=== PATIENT | male | born 1945 | race Caucasian/White ===

== ENCOUNTER 2020-01-23 09:27 | Inpatient (IN) ==
[2020-01-23] MEDS ORDERED: ASPIRIN 325 MG TABLET PO STA (09:52)
[2020-01-23] MEDS ORDERED: NITROGLYCERIN SL 0.4 MG TABLET SL PRN ×2 (09:52→11:26)
[2020-01-23 10:01] LABS: Basophils % 0.1 % (0.0-0.8); Eosinophils # 0.1 10*3/uL (0.0-0.87); Eosinophils % 0.3 % (0.00-10.9); Hematocrit 36.7 VOL% (42.0-52.0); Hemoglobin 12.3 GM/DL (14.0-18.0); Immature Granulocytes % 0.7 %; Immature Granulocytes Absolute 0.12 #; Lymphocytes # 0.7 10*3/uL (1.4-4.0); Lymphocytes % 3.9 % (21.2-54.2); Mean Corpuscular HGB Conc 33.5 GM/DL (32-36); Mean Corpuscular Volume 88.2 FL (87-102); Mean Platelet Volume 9.1 FL (9.6-12.0); Monocytes % 7.3 % (1.7-12.7); Neutrophils % 87.7 % (38.7-73.9); Platelet Count 511 T/CUMM (130-400); Red Blood Count 4.16 MC/CUMM (3.8-5.5); Red Cell Distribution Width 12.3 % (9.3-17.3); White Blood Count 18.3 T/CUMM (4-12)
[2020-01-23 10:22] LABS: Band Neutrophils 7 % (0-10); Eosinophils 1 % (0-10); Lymphocytes 6 % (20-55); Platelet Estimate Increased; Segmented Neutrophils 79 % (50-85); Total Cells Counted 100
[2020-01-23 10:23] LABS: Anisocytosis Slight
[2020-01-23 10:35] LABS: Albumin 2.8 G/DL (3.4-5.0); Bilirubin,Total 1.1 MG/DL (0.2-1.0); Calcium 10.1 MG/DL (8.5-10.1); Osmolality,Calculated 270.5 MOS/KG (273-304); Total Protein 8.9 G/DL (6.4-8.3)
[2020-01-23] MEDS ORDERED: DEXTROSE 50% 25 GM/50 ML VIAL IV PRN (11:23)
[2020-01-23] MEDS ORDERED: MAGNESIUM SULF RIDER 4 GM in PREMIX 1 EACH IV PRN (11:23)
[2020-01-23] MEDS ORDERED: MAGNESIUM SULF RIDER 2 GM in PREMIX 1 EACH IV PRN (11:23)
[2020-01-23] MEDS ORDERED: ONDANSETRON 4 MG/2 ML VIAL IV PRN (11:23)
[2020-01-23] MEDS ORDERED: ACETAMINOPHEN 325 MG TABLET PO PRN (11:23)
[2020-01-23] MEDS ORDERED: GLUCAGON 1 MG VIAL IM PRN (11:23)
[2020-01-23] MEDS: INSULIN LISPRO 100 UNIT/ML SUBCUT SCH ×3 (13:13→20:45)
[2020-01-23] MEDS ORDERED: ENOXAPARIN 40 MG/0.4 ML SYRINGE SUBCUT SCH (14:00)
[2020-01-23] MEDS: SODIUM CHLORIDE 0.45% 1,000 ML IV SCH (14:05)
[2020-01-23] MEDS: cloNIDine 0.1 MG TABLET PO SCH ×2 (14:13→20:41)
[2020-01-23] MEDS: MAGNESIUM CHLORIDE 64 MG TABLET PO SCH (20:41)
[2020-01-23] MEDS: METOPROLOL TARTRATE 50 MG TABLET PO SCH (20:41)
[2020-01-23] MEDS: ALPRAZolam 0.5 MG TABLET PO PRN (20:41)
[2020-01-23] MEDS: SIMVASTATIN 10 MG TABLET PO SCH (20:42)
[2020-01-23] MEDS ORDERED: DILTIAZEM 25 MG/5 ML VIAL IV ONE (21:14)
[2020-01-23] MEDS: dilTIAZem INJ 125 MG in SODIUM CHLORIDE 0.9% 125 MG/100 ML BAG IV SCH (22:21)
[2020-01-24 05:44] LABS: Basophils % 0.1 % (0.0-0.8); Eosinophils # 0.1 10*3/uL (0.0-0.87); Eosinophils % 0.4 % (0.00-10.9); Hematocrit 32.6 VOL% (42.0-52.0); Immature Granulocytes % 0.5 %; Immature Granulocytes Absolute 0.07 #; Lymphocytes # 1.3 10*3/uL (1.4-4.0); Lymphocytes % 8.4 % (21.2-54.2); Mean Corpuscular HGB Conc 33.7 GM/DL (32-36); Mean Platelet Volume 8.8 FL (9.6-12.0); Monocytes % 9.7 % (1.7-12.7); Neutrophils % 80.9 % (38.7-73.9); Platelet Count 457 T/CUMM (130-400); Red Blood Count 3.79 MC/CUMM (3.8-5.5); Red Cell Distribution Width 12.5 % (9.3-17.3); White Blood Count 14.9 T/CUMM (4-12)
[2020-01-24 06:20] LABS: Calcium 9.4 MG/DL (8.5-10.1); Osmolality,Calculated 270.4 MOS/KG (273-304)
[2020-01-24 06:53] LABS: Risk Ratio 2.78; VLDL CHOLESTEROL 10.6 MG/DL
[2020-01-24] MEDS: POTASSIUM CHLORIDE 20 MEQ TABLET PO PRN ×3 (07:32→12:22)
[2020-01-24] MEDS ORDERED: MAGNESIUM SULF RIDER 2 GM in PREMIX 1 EACH IV ONE (08:14)
[2020-01-24] MEDS ORDERED: AMIODARONE INJ 150 MG in DEXTROSE 5% 100 ML IV ONE (08:20)
[2020-01-24] MEDS ORDERED: KETOROLAC 30 MG/1 ML VIAL IV PRN (08:27)
[2020-01-24] MEDS ORDERED: AMIODARONE INJ 450 MG in DEXTROSE 5% 241 ML IV SCH (08:30)
[2020-01-24] MEDS: INSULIN LISPRO 100 UNIT/ML SUBCUT SCH ×4 (08:54→22:02)
[2020-01-24] MEDS ORDERED: CLOPIDOGREL 75 MG TABLET PO SCH (09:00)
[2020-01-24] MEDS ORDERED: hydroCHLOROthiazide 12.5 MG CAPSULE PO SCH (09:00)
[2020-01-24] MEDS ORDERED: AMIODARONE 200 MG TABLET PO SCH (09:00)
[2020-01-24] MEDS: cloNIDine 0.1 MG TABLET PO SCH ×3 (09:35→22:02)
[2020-01-24] MEDS: ENOXAPARIN 100 MG/ML SYRINGE SUBCUT SCH ×2 (09:35→22:01)
[2020-01-24] MEDS: CHOLECALCIFEROL 5,000 UNIT TABLET PO SCH (09:35)
[2020-01-24] MEDS: MAGNESIUM CHLORIDE 64 MG TABLET PO SCH ×2 (09:35→22:02)
[2020-01-24 09:36] LABS: Thyroid Stimulating Hormone 0.782 uIU/ml (0.358-3.74)
[2020-01-24] MEDS: METOPROLOL TARTRATE 50 MG TABLET PO SCH ×2 (09:36→22:02)
[2020-01-24] MEDS: PANTOPRAZOLE 40 MG TABLET PO SCH (09:36)
[2020-01-24] MEDS: LOSARTAN 50 MG TABLET PO SCH (09:36)
[2020-01-24 12:30] LABS: Total Protein 7.8 G/DL (6.4-8.3)
[2020-01-24 13:18] LABS: Immunoglobulin A (Chem) 389 MG/DL (70-400); Immunoglobulin G (Chem) 1080 MG/DL (700-1600); Immunoglobulin M (Chem) 35 MG/DL (40-230); Total Protein (Chem) 7.8 G/DL (6.4-8.3)
[2020-01-24] MEDS ORDERED: POTASSIUM CHLORIDE RIDER 10 MEQ in PREMIX 1 EACH IV PRN (15:07)
[2020-01-24 16:21] LABS: Bacteria,Urine Occasional /HPF (Few); Bilirubin,Urine Negative (Negative); Blood, Urine Small mg/dL (Negative); Glucose,Urine (UA) Negative (Negative); Ketones,Urine Negative (Negative); Mucus,Urine Occasional /LPF (Occasional); Nitrite,Urine Negative (Negative); Protein,Urine Negative; RBC,Urine 3 /HPF (0-4); Squamous Epithelial Cell,Urine Occasional /HPF (0-10); Urine Appearance Slightly Hazy (Clear); Urine Color Yellow (Yellow); Urine Specific Gravity 1.023 (1.001-1.035); WBC,Urine 3 /HPF (0-6)
[2020-01-24] MEDS: SODIUM CHLORIDE 0.45% 1,000 ML IV SCH (16:24)
[2020-01-24] MEDS: AMIODARONE INJ 450 MG in DEXTROSE 5% 241 ML IV SCH ×2 (17:24→22:42)
[2020-01-24 18:25] LABS: Albumin 2.5 G/DL (3.4-5.0); Bilirubin,Direct 0.28 MG/DL (0.0-0.20); Bilirubin,Indirect 0.3 MG/DL (0.0-1.0); Bilirubin,Total 0.6 MG/DL (0.2-1.0); Total Protein 7.9 G/DL (6.4-8.3)
[2020-01-24 19:12] LABS: Cyclic Citrull Peptide Interp Positive
[2020-01-24] MEDS: ALPRAZolam 0.5 MG TABLET PO PRN (22:02)
[2020-01-24] MEDS: SIMVASTATIN 10 MG TABLET PO SCH (22:04)
[2020-01-24] MEDS: dilTIAZem INJ 125 MG in SODIUM CHLORIDE 0.9% 125 MG/100 ML BAG IV SCH (22:38)
[2020-01-25 05:58] LABS: Basophils % 0.2 % (0.0-0.8); Eosinophils # 0.1 10*3/uL (0.0-0.87); Eosinophils % 1.1 % (0.00-10.9); Hemoglobin 11.1 GM/DL (14.0-18.0); Immature Granulocytes % 0.5 %; Immature Granulocytes Absolute 0.06 #; Lymphocytes # 1.4 10*3/uL (1.4-4.0); Lymphocytes % 12.2 % (21.2-54.2); Mean Corpuscular HGB Conc 32.6 GM/DL (32-36); Mean Corpuscular Volume 87.4 FL (87-102); Mean Platelet Volume 9.1 FL (9.6-12.0); Monocytes % 9.2 % (1.7-12.7); Neutrophils % 76.8 % (38.7-73.9); Platelet Count 463 T/CUMM (130-400); Red Blood Count 3.89 MC/CUMM (3.8-5.5); Red Cell Distribution Width 12.4 % (9.3-17.3); White Blood Count 11.1 T/CUMM (4-12)
[2020-01-25 06:19] LABS: Calcium 9.4 MG/DL (8.5-10.1); Osmolality,Calculated 269.4 MOS/KG (273-304)
[2020-01-25] MEDS: INSULIN LISPRO 100 UNIT/ML SUBCUT SCH ×4 (08:14→21:56)
[2020-01-25] MEDS: CYANOCOBALAMIN 500 MCG TABLET PO SCH (08:15)
[2020-01-25] MEDS: FERROUS SULFATE 325 MG TABLET PO SCH (08:15)
[2020-01-25] MEDS: CHOLECALCIFEROL 5,000 UNIT TABLET PO SCH (08:15)
[2020-01-25] MEDS: MAGNESIUM CHLORIDE 64 MG TABLET PO SCH ×2 (08:15→21:55)
[2020-01-25] MEDS ORDERED: DIAZEPAM 5 MG TABLET PO ONE (09:00)
[2020-01-25] MEDS ORDERED: diphenhydrAMINE CAP 25 MG CAPSULE PO ONE (09:00)
[2020-01-25] MEDS: ASPIRIN EC 81 MG TABLET PO SCH (09:08)
[2020-01-25] MEDS: METOPROLOL TARTRATE 50 MG TABLET PO SCH ×2 (09:09→21:55)
[2020-01-25] MEDS: LOSARTAN 50 MG TABLET PO SCH (09:09)
[2020-01-25] MEDS: PANTOPRAZOLE 40 MG TABLET PO SCH (09:09)
[2020-01-25] MEDS: cloNIDine 0.1 MG TABLET PO SCH ×3 (09:09→21:55)
[2020-01-25] MEDS: AMIODARONE 200 MG TABLET PO SCH ×2 (09:09→21:56)
[2020-01-25] MEDS ORDERED: fentaNYL 100 MCG/2 ML VIAL ONE (09:25)
[2020-01-25] MEDS ORDERED: MIDAZOLAM 2 MG/2 ML VIAL ONE (09:25)
[2020-01-25] MEDS ORDERED: LIDOCAINE 1% 20 ML VIAL ONE (09:27)
[2020-01-25] MEDS ORDERED: HEPARIN 5,000 UNIT/1 ML VIAL ONE (09:45)
[2020-01-25 10:17] LABS: Albumin (SPE) Rel % 45.4 %; Alpha 2 (SPE) Rel % 19.5 %; Beta (SPE) Rel % 13.8 %; Gamma (SPE) Rel % 15.3 %
[2020-01-25 10:38] LABS: Albumin (SPE) 3.5 G/DL (3.2-5.3); Alpha 1 (SPE) 0.5 G/DL (0.1-0.4); Alpha 2 (SPE) 1.5 G/DL (0.4-1.0); Beta (SPE) 1.1 G/DL (0.5-1.1); Gamma (SPE) 1.2 G/DL (0.7-1.7)
[2020-01-25] MEDS: methylPREDNISolone SOD SUC 40 MG/1 ML VIAL IV SCH (13:25)
[2020-01-25] MEDS: SODIUM CHLORIDE 0.45% 1,000 ML IV SCH ×2 (15:55→21:57)
[2020-01-25 18:59] LABS: Total Protein 24 Hr Ur Result 432 MG/24HR (0-149.1); Total Volume,Urine 2700 ML (400-2000)
[2020-01-25] MEDS: ALPRAZolam 0.5 MG TABLET PO PRN (21:55)
[2020-01-25] MEDS: SIMVASTATIN 10 MG TABLET PO SCH (21:55)
[2020-01-25] MEDS: dilTIAZem INJ 125 MG in SODIUM CHLORIDE 0.9% 125 MG/100 ML BAG IV SCH (21:56)
[2020-01-26] MEDS: methylPREDNISolone SOD SUC 40 MG/1 ML VIAL IV SCH (02:58)
[2020-01-26 05:12] LABS: Basophils % 0.2 % (0.0-0.8); Eosinophils # 0.2 10*3/uL (0.0-0.87); Eosinophils % 2.2 % (0.00-10.9); Hematocrit 32.3 VOL% (42.0-52.0); Hemoglobin 10.6 GM/DL (14.0-18.0); Immature Granulocytes % 0.7 %; Immature Granulocytes Absolute 0.06 #; Lymphocytes # 1.1 10*3/uL (1.4-4.0); Lymphocytes % 12.3 % (21.2-54.2); Mean Corpuscular HGB Conc 32.8 GM/DL (32-36); Mean Corpuscular Volume 88.7 FL (87-102); Mean Platelet Volume 8.7 FL (9.6-12.0); Monocytes % 8.4 % (1.7-12.7); Neutrophils % 76.2 % (38.7-73.9); Platelet Count 463 T/CUMM (130-400); Red Blood Count 3.64 MC/CUMM (3.8-5.5); Red Cell Distribution Width 12.3 % (9.3-17.3); White Blood Count 8.6 T/CUMM (4-12)
[2020-01-26 06:32] LABS: 24 Hr Protein (Bench) 432 MG/24HR (0-149.1)
[2020-01-26 07:38] VITALS: BP 149/84
[2020-01-26] MEDS ORDERED: methylPREDNISolone SOD SUC 40 MG/1 ML VIAL IV ONE (08:33)
[2020-01-26] MEDS ORDERED: APIXABAN 5 MG TABLET PO SCH (09:00)
[2020-01-26] MEDS: INSULIN LISPRO 100 UNIT/ML SUBCUT SCH (09:35)
[2020-01-26] MEDS: MAGNESIUM CHLORIDE 64 MG TABLET PO SCH (09:35)
[2020-01-26] MEDS: CYANOCOBALAMIN 500 MCG TABLET PO SCH (09:35)
[2020-01-26] MEDS: METOPROLOL TARTRATE 50 MG TABLET PO SCH (09:35)
[2020-01-26] MEDS: FERROUS SULFATE 325 MG TABLET PO SCH (09:35)
[2020-01-26] MEDS: ASPIRIN EC 81 MG TABLET PO SCH (09:36)
[2020-01-26] MEDS: PANTOPRAZOLE 40 MG TABLET PO SCH (09:36)
[2020-01-26] MEDS: cloNIDine 0.1 MG TABLET PO SCH (09:36)
[2020-01-26] MEDS: AMIODARONE 200 MG TABLET PO SCH (09:36)
[2020-01-26] MEDS: CHOLECALCIFEROL 5,000 UNIT TABLET PO SCH (09:36)
[2020-01-26] MEDS: LOSARTAN 50 MG TABLET PO SCH (09:38)
== END 2020-01-26 11:14 | disposition home or self-care (01) | DRG 287 ==
LOC: EDUNIT# → EDBD → N.ED 09:27 → N.EDINP 11:23 → N.5E 12:59 → N.TELES 23:02
PROVIDERS: ADMIT Internal Medicine; ATTEND Internal Medicine
PROC: CLCCHCL (ICD-10-PCS; 2020-01-25 09:45)